=== PATIENT | female | born 1965 | race Caucasian/White ===

== ENCOUNTER → 2017-01-05 | Day surgery (SDC) | payer OTHER ==
--- NOTE | 2017-01-08 16:28 | PATH ---
Surgical Pathology Report Patient Name: EDIN GARZA [facility]. Rec. #: [id number] /Age/Gender: 1965 (Age: 51) / F Account: [id number] Location: [facility], [facility] RADIOLOGY U Taken: 01/05/2017 Received: 01/05/2017 Reported: 01/08/2017 Physicians: Aniket Goldberg M.D. Specimen(s) Received LEFT BREAST 10.00 CORE BIOPSY Clinical History Suspicious enhancing 0.6 cm mass in 10:00 left breast Final Diagnosis BREAST, LEFT, 10:00, CORE BIOPSY: BENIGN BREAST TISSUE SHOWING FIBROADENOMA. Electronically Signed Jennifer Quiroz M.D. Gross Description Received in formalin labeled "left breast," is a 2.5 x 2.5 x 0.3 cm aggregate of multiple kumar-yellow, irregular to cylindrical portions of fibroadipose tissue. The formalin is filtered and the specimen is entirely submitted in one cassette. Time to formalin fixation: 2 minutes Total formalin fixation time: Approximately 6 hours. /01/05/201701/05/2017
== END | disposition home or self-care (01) ==
LOC: FRADUS-SUR 11:28
PROVIDERS: ATTEND Surgery Surgical Oncology
PROC: 0HBU3ZX Excision of Left Breast, Percutaneous Approach, Diagnostic (ICD-10-PCS; principal; 2017-01-05)
DX: D24.2 Benign neoplasm of left breast (principal); N63 Unspecified lump in breast
CPT/HCPCS: 19085; 88305-TC; A4648; C1887; G0206-TC